=== PATIENT | male | born 1945 | race Caucasian/White ===

== ENCOUNTER → 2018-05-17 | Outpatient (CLI) | payer OTHER ==
[~2018-05-17] MED LIST: ACET-2521 PO; ASPI-1005 PO; CARB30DR OU; CHOL200074 PO; CLOP75TA32 PO; DOCU100C33 PO; LISI30TA4 PO; LORA10TA7 PO; MEGA RED PO; MELO-108 PO; METO25TA6 PO; MOME17N NS; MULT-1289 PO; OXYB5TAB10 PO; RANI150C4 PO; SIMV80TA7 PO
== END | disposition home or self-care (01) ==
LOC: RAH 12:46
PROVIDERS: ATTEND Internal Medicine Cardiovascular Disease
DX: R09.89 Other specified symptoms and signs involving the circulatory and respiratory systems (principal)
CPT/HCPCS: 93880

== ENCOUNTER → 2018-07-21 | Outpatient (CLI) | payer OTHER ==
[~2018-07-21] MED LIST changes: +GADODIAMIDE 10 MMOL/20 ML ML IV ONE
== END | disposition home or self-care (01) ==
LOC: RAH 13:44
PROVIDERS: ATTEND Family Medicine
DX: C07 Malignant neoplasm of parotid gland (principal); G31.9 Degenerative disease of nervous system, unspecified; M47.892 Other spondylosis, cervical region
CPT/HCPCS: 70543; A9579

== ENCOUNTER → 2018-11-28 | Outpatient (CLI) | payer OTHER ==
[~2018-11-28] MED LIST changes: -GADODIAMIDE 10 MMOL/20 ML ML IV ONE; +IOHEXOL 350 MG/ML 100ML INFUS..BTL IV ONE; -SIMV80TA7 PO; +SIMV80TA91 PO
== END | disposition home or self-care (01) ==
LOC: RAH 08:34
PROVIDERS: ATTEND Internal Medicine Cardiovascular Disease
DX: I71.4 Abdominal aortic aneurysm, without rupture (principal); I70.0 Atherosclerosis of aorta; I70.203 Unspecified atherosclerosis of native arteries of extremities, bilateral legs
CPT/HCPCS: 75635; Q9967 ×2

== ENCOUNTER 2019-01-11 07:24 | Day surgery (SDC) | payer OTHER ==
[2019-01-09 09:56] VITALS: BP 140/63
[2019-01-09 10:07] LABS: BASOPHILS % (AUTO) 1.2 % (0.0-5.0); EOSINOPHILS % (AUTO) 1.3 % (0.0-8.0); LYMPHOCYTES % (AUTO) 24.6 % (21.0-51.0); MEAN CORPUSCULAR HEMOGLOBIN 29.3 pg (27.0-33.0); MEAN CORPUSCULAR HGB CONC 33.5 g/dL (32.0-36.0); MEAN CORPUSCULAR VOLUME 87.2 fL (79-99); MONOCYTES % (AUTO) 7.8 % (3.0-13.0); NEUTROPHILS % (AUTO) 65.1 % (40.0-77.0); PLATELET COUNT (AUTO) 172 K/uL (130-400); RED BLOOD CELL COUNT(AUTO) 5.16 MIL/uL (4.50-6.20); RED CELL DISTRIBUTION WIDTH 14.1 % (11.0-15.5); WHITE BLOOD COUNT (AUTO) 9.7 K/uL (4.8-10.8)
[2019-01-09 10:09] LABS: CREATININE 1.3 mg/dL (0.5-1.5); POTASSIUM 4.7 mmol/L (3.5-5.1)
[2019-01-09 10:11] LABS: INR 0.97 (0.85-1.15); PARTIAL THROMBOPLASTIN TIME 29.1 SEC (26.3-35.5); PROTHROMBIN TIME 10.2 SEC (9.6-11.6)
[2019-01-09 10:27] LABS: APPEARANCE,URINE Clear (CLEAR); BILIRUBIN,URINE Negative (NEGATIVE); COLOR,URINE Yellow (YELLOW); GLUCOSE, URINE (UA) Negative (NEGATIVE); KETONES,URINE Negative (NEGATIVE); LEUKOCYTE ESTERASE ,URINE Negative (NEGATIVE); NITRATE,URINE Negative (NEGATIVE); OCCULT BLOOD,URINE Negative (NEGATIVE); PROTEIN,URINE Negative (NEGATIVE)
--- NOTE | 2019-01-10 10:58 | NUR ---
REPORTED ABNORMAL LABS AND CHEST XRAY TO [facility] [place] OF DR. KELLER. OK TO PROCEED NO NEW ORDERS.
[~2019-01-11] VITALS: Ht 182.9 cm; Wt 114.6 kg
[2019-01-11] VITALS (10 sets, daily range): BP systolic 106–152; BP diastolic 57–72
[~2019-01-11 07:24] MED LIST changes: -ASPI-1005 PO; +ASPI-555 PO; +CILO50TA PO; -IOHEXOL 350 MG/ML 100ML INFUS..BTL IV ONE; +KETOROLAC OU; -LORA10TA7 PO; -MEGA RED PO; -MELO-108 PO; +METO-391 PO; -METO25TA6 PO; -MOME17N NS; -MULT-1289 PO; +OMEG-112 PO
[2019-01-11] MEDS ORDERED: SODIUM CHLORIDE 0.9% 1000ML 1,000 ML IV ONE (07:38)
[2019-01-11] MEDS ORDERED: MONT10TA24 PO (08:57)
[2019-01-11] MEDS ORDERED: LORA10TA7 PO (08:57)
[2019-01-11] MEDS ORDERED: MULT-1258 PO (08:57)
[2019-01-11] MEDS ORDERED: METO50TA18 PO (08:57)
[2019-01-11] MEDS ORDERED: CARB15DR OP (08:57)
--- NOTE | 2019-01-11 09:10 | NUR ---
ORDERS REPORTED TO DR. KELLER THAT PT HAS A COUGH, ON AND OFF, NON PRODUCTIVE. ALSO REPORTED CHEST XRAY RESULT. DR. KELLER CAME TO SEE AND TALK TO PT IN ROOM. CHART REVIEWED BY DR. KELLER. ORDERS TO GIVE NS AT 100ML/HR.
[2019-01-11] MEDS ORDERED: SODIUM BICARB 50MEQ 50ML VIAL ONE (11:14)
[2019-01-11] MEDS ORDERED: HEPARIN SODIUM 1000UNIT/ML 10ML VIAL ONE (11:14)
[2019-01-11] MEDS ORDERED: NITROGLYCERIN 5 MG/ML 10 ML VIAL IV ONE (11:14)
[2019-01-11] MEDS ORDERED: LIDOCAINE HCL 2% 20ML ONE (11:15)
[2019-01-11] MEDS ORDERED: IODIXANOL 320 MG/ML 100 ML VIAL ONE (11:15)
[2019-01-11] MEDS ORDERED: MIDAZOLAM HCL 1 MG/ML 2ML VIAL ONE ×2 (11:59→13:12)
[2019-01-11] MEDS ORDERED: MEPERIDINE-PF 25 MG/ML SYG ONE ×2 (11:59→13:11)
[2019-01-11] MEDS ORDERED: SODIUM CHLORIDE 0.9% 1000ML 1,000 ML IV SCH (13:50)
[2019-01-11] MEDS ORDERED: ACETAMINOPHEN-CODEINE 300/30MG TAB PO PRN ×2 (14:00)
--- NOTE | 2019-01-11 15:49 | NUR ---
got report from paulina mortensen rn, pt stable
--- NOTE | 2019-01-11 15:53 | NUR ---
REPORT REPORT GIVEN TO CALVIN RAGSDALE RN. PT SUPINE ON BED, STATES HE IS SLEEPY. NO OTHER COMPLAINTS MADE. TOLERATED ORAL FLUIDS WELL. CATH SITE TO RIGHT GROIN REMAINS SOFT, NO OOZING NO HEMATOMA NOTED.
== END 2019-01-11 18:17 | disposition home or self-care (01) ==
LOC: DAHIP 07:24 → DAH 07:24
PROVIDERS: ATTEND Internal Medicine Cardiovascular Disease
DX: I70.213 Atherosclerosis of native arteries of extremities with intermittent claudication, bilateral legs (principal); I10 Essential (primary) hypertension; E78.5 Hyperlipidemia, unspecified; I25.10 Atherosclerotic heart disease of native coronary artery without angina pectoris; E66.9 Obesity, unspecified; Z68.34 Body mass index [BMI] 34.0-34.9, adult; F15.90 Other stimulant use, unspecified, uncomplicated; Z79.01 Long term (current) use of anticoagulants; F17.210 Nicotine dependence, cigarettes, uncomplicated; Z79.899 Other long term (current) drug therapy; Z98.890 Other specified postprocedural states
CPT/HCPCS: 36415; 37221; 37226; 71045; 75625; 75716; 80048; 81003; 85025; 85610; 85730; 93005; A4606; C1725 ×2; C1760; C1769 ×2; C1874; C1876; C1887; C1893; C1894; J1644 ×2; J2175 ×2; J2250 ×2; J3490 ×3; J7030; Q9967; 99156; 99157; G0378

== ENCOUNTER 2019-04-25 09:55 | Day surgery (SDC) | payer OTHER ==
[2019-04-21 11:02] VITALS: BP 157/77
[2019-04-21 11:17] LABS: APPEARANCE,URINE Clear (CLEAR); BILIRUBIN,URINE Negative (NEGATIVE); COLOR,URINE Yellow (YELLOW); GLUCOSE, URINE (UA) Negative (NEGATIVE); KETONES,URINE Negative (NEGATIVE); LEUKOCYTE ESTERASE ,URINE Negative (NEGATIVE); NITRATE,URINE Negative (NEGATIVE); OCCULT BLOOD,URINE Negative (NEGATIVE); PROTEIN,URINE Negative (NEGATIVE)
[2019-04-21 11:57] LABS: INR 0.96 (0.85-1.15); PARTIAL THROMBOPLASTIN TIME 27.9 SEC (26.3-35.5); PROTHROMBIN TIME 10.1 SEC (9.6-11.6)
[2019-04-25] VITALS (20 sets, daily range): BP systolic 117–155; BP diastolic 52–70
[~2019-04-25] VITALS: Ht 182.9 cm; Wt 115.8 kg
[~2019-04-25 09:55] MED LIST changes: +ACETAMINOPHEN 325 MG TAB PO PRN; -CARB30DR OU; -CHOL200074 PO; -KETOROLAC OU; -LISI30TA4 PO; +LORA10TA7 PO; +LOSA50TA64 PO; -METO-391 PO; +METO50TA18 PO; +MONT10TA24 PO; +MULT-1289 PO; -OXYB5TAB10 PO; +OXYB5TAB15 PO; +SODIUM CHLORIDE 0.9% 500ML 500 ML IV SCH
[2019-04-25] MEDS ORDERED: HEPARIN SODIUM 1000UNIT/ML 10ML VIAL ONE (10:39)
[2019-04-25] MEDS ORDERED: SODIUM BICARB 50MEQ 50ML VIAL ONE (10:39)
[2019-04-25] MEDS ORDERED: LIDOCAINE HCL 2% 20ML ONE (10:39)
[2019-04-25] MEDS ORDERED: IODIXANOL 320 MG/ML 100 ML VIAL ONE (10:39)
[2019-04-25] MEDS ORDERED: SODIUM CHLORIDE 0.9% 1000ML 1,000 ML IV ONE (10:58)
[2019-04-25] MEDS ORDERED: MEPERIDINE-PF 25 MG/ML SYG ONE ×2 (11:08→12:09)
[2019-04-25] MEDS ORDERED: NITROGLYCERIN 5 MG/ML 10 ML VIAL IV ONE (11:08)
[2019-04-25] MEDS ORDERED: MIDAZOLAM HCL 1 MG/ML 2ML VIAL ONE ×2 (11:08→12:09)
[2019-04-25] MEDS ORDERED: SODIUM CHLORIDE 0.9% 1000ML 1,000 ML IV SCH (12:40)
--- NOTE | 2019-04-25 13:30 | NUR ---
Bleeding to dressing to left femoral cath site continued to increase in size, however site remains soft. Pressure applied x 20 mins.
--- NOTE | 2019-04-25 13:50 | NUR ---
Old dressing removed, D-Stat applied and an additional 15 mins. of pressure applied. Addendum: 04/25/19 at 1610 by CAMI DRAPER RN RN biological lab technician called, Dr. Ochoa was unavailable. LARY Pate stated he would inform Dr. Ochoa that pt's left femoral cath site was ozzing and that a D-stat was applied.
--- NOTE | 2019-04-25 14:25 | NUR ---
Blood spot to Left femoral D-stat continues to increase. Dressing removed to evaluate bleeding. A slow ooze of blood persists to left femoral cath site. New D-stat applied and pressure further applied for 30 mins. 20 mins in to applying pressure, outside laborer also called to notify Dr. Ochoa of pt's continued oozing to site. Spoke with Shabbir, manometer technician who stated they would check on pt.
--- NOTE | 2019-04-25 15:00 | NUR ---
Shabbir clinical technician into check on pt. Shabbir took over pressure and applied an additional 30 mins of firm pressure.
--- NOTE | 2019-04-25 15:25 | NUR ---
LIZETT Chowdary in to see pt. LIZETT Chowdary aware of bleeding to left cath site and efforts to stop it. LIZETT Chowdary also informed of macular red rash that had been noted to pt's right side of neck upon returning from tin can laborer. Orders given to keep pt an additional 3 hours after application of pressure dressing.
--- NOTE | 2019-04-25 15:30 | NUR ---
Full hour of pressure completed to left femoral cath site. Site shows no further signs of bleeding. Pressure dressing applied to left femoral cath site by Shabbir injection molding process technician.
--- NOTE | 2019-04-25 18:30 | NUR ---
Pressure dressing to left femoral cath site removed, dressing clean, dry and intact s any bleeding noted, site soft and non-tender, pedal pulse present.
--- NOTE | 2019-04-25 19:00 | NUR ---
Pt discharged home, tolerating fluids/solids wells, ambulating well, voiding well. Pt denies any severe pain, nausea or dizziness. Dressing to left femoral cath site remains clean, dry, and intact s any evidence of bleeding. Pt and spouse instructed in routine and emergency care of groin site. Pt and spouse report understanding. Pt and spouse deny any further questions at this time.
== END 2019-04-25 19:00 | disposition home or self-care (01) ==
LOC: DAH 09:55
PROVIDERS: ATTEND Internal Medicine Cardiovascular Disease
DX: I70.211 Atherosclerosis of native arteries of extremities with intermittent claudication, right leg (principal); I10 Essential (primary) hypertension; J43.9 Emphysema, unspecified; F17.210 Nicotine dependence, cigarettes, uncomplicated; Z79.899 Other long term (current) drug therapy; Z82.49 Family history of ischemic heart disease and other diseases of the circulatory system; Z79.01 Long term (current) use of anticoagulants; Z98.890 Other specified postprocedural states
CPT/HCPCS: 36415; 37226; 75625; 75716; 81003; 85610; 85730; A4215 ×2; A4216; A4221; A4222; A4223 ×2; A4606; C1760; C1769 ×2; C1874; C1887; C1893; C1894; C2623; J1644 ×2; J2175 ×2; J2250 ×2; J3490 ×3; J7030; Q9967; 99156; 99157

== ENCOUNTER → 2020-01-22 | Outpatient (CLI) | payer OTHER ==
[~2020-01-22] MED LIST changes: +ACET325C6 PO; -ACETAMINOPHEN 325 MG TAB PO PRN; -ASPI-555 PO; +ASPI-556 PO; +CARB15DR OP; +FAMO20TA8 PO; +LOSA100T58 PO; -MONT10TA24 PO; +MONT10TA26 PO; +REGADENOSON 0.4 MG/5 ML PF SYG IVP SCH; -SODIUM CHLORIDE 0.9% 500ML 500 ML IV SCH
== END | disposition home or self-care (01) ==
LOC: SHCH 08:38
PROVIDERS: ATTEND Internal Medicine Cardiovascular Disease
DX: I10 Essential (primary) hypertension (principal)
CPT/HCPCS: 78452; 93017; 96374; A9500 ×2; J2785

== ENCOUNTER 2020-04-12 09:00 | Observation (INO) | payer OTHER ==
[2020-04-10 10:09] LABS: BASOPHILS % (AUTO) 0.5 % (0.0-5.0); HEMATOCRIT 45.7 % (42-54); MEAN CORPUSCULAR HEMOGLOBIN 27.9 pg (27.0-33.0); MEAN CORPUSCULAR HGB CONC 31.9 g/dL (32.0-36.0); MEAN CORPUSCULAR VOLUME 87.2 fL (79-99); MONOCYTES % (AUTO) 6.6 % (3.0-13.0); NEUTROPHILS % (AUTO) 73.6 % (40.0-77.0); PLATELET COUNT (AUTO) 190 K/uL (130-400); RED BLOOD CELL COUNT(AUTO) 5.24 MIL/uL (4.50-6.20); RED CELL DISTRIBUTION WIDTH 13.2 % (11.0-15.5); WHITE BLOOD COUNT (AUTO) 8.8 K/uL (4.8-10.8)
[2020-04-10 10:11] LABS: APPEARANCE,URINE Clear (CLEAR); BILIRUBIN,URINE Negative (NEGATIVE); COLOR,URINE Yellow (YELLOW); GLUCOSE, URINE (UA) Negative (NEGATIVE); KETONES,URINE Negative (NEGATIVE); LEUKOCYTE ESTERASE ,URINE Negative (NEGATIVE); NITRATE,URINE Negative (NEGATIVE); OCCULT BLOOD,URINE Negative (NEGATIVE); PROTEIN,URINE Negative (NEGATIVE)
[2020-04-10 10:16] LABS: POTASSIUM 4.1 mmol/L (3.5-5.1)
[2020-04-10 10:19] LABS: INR 0.91 (0.85-1.15); PARTIAL THROMBOPLASTIN TIME 27.8 SEC (26.3-35.5); PROTHROMBIN TIME 9.9 SEC (9.6-11.6)
[2020-04-10 14:04] VITALS: BP 150/74
--- NOTE | 2020-04-11 14:13 | NUR ---
xray abnormal chest xray reported to topher [facility], no furhter orders given
[~2020-04-12] VITALS: Ht 182.9 cm; Wt 114.0 kg
[~2020-04-12 09:00] MED LIST changes: -ACET-2521 PO; -ACET325C6 PO; -CARB15DR OP; -LOSA50TA64 PO; -MULT-1289 PO; -RANI150C4 PO; -REGADENOSON 0.4 MG/5 ML PF SYG IVP SCH
[2020-04-12] MEDS ORDERED: SODIUM CHLORIDE 0.9% 1000ML 1,000 ML IV ONE (09:36)
[2020-04-12 10:00] VITALS: BP 137/65
--- NOTE | 2020-04-12 10:30 | NUR ---
Dr Ochoa evaluating patient. Productive cough, clear phelm SAO2 94% stopped inhalers 3 months ago chest x-ray done yesterday reviewedby by Dr Ochoa Ordered O2 & resp Treatment
[2020-04-12] MEDS ORDERED: ACET325C6 PO (10:46)
[2020-04-12] MEDS ORDERED: CARB15DR OP (10:46)
[2020-04-12] MEDS ORDERED: ALBUTEROL SULFATE 0.083% 2.5 MG/3 ML INH IH ONE (10:55)
[2020-04-12] MEDS ORDERED: HEPARIN SODIUM 1000UNIT/ML 10ML VIAL ONE (13:16)
[2020-04-12] MEDS ORDERED: IOHEXOL 350 MG/ML 100ML INFUS..BTL IV ONE (13:16)
[2020-04-12] MEDS ORDERED: MEPERIDINE-PF 25 MG/ML SYG ONE (13:16)
[2020-04-12] MEDS ORDERED: IOHEXOL-350 50ML VIAL IV ONE ×2 (13:16→14:20)
[2020-04-12] MEDS ORDERED: NITROGLYCERIN 2 MG/VIAL VIAL IV ONE (13:16)
[2020-04-12] MEDS ORDERED: MIDAZOLAM HCL 1 MG/ML 2ML VIAL ONE (13:17)
[2020-04-12] MEDS ORDERED: LIDOCAINE HCL 2% 20ML ONE (13:17)
[2020-04-12] MEDS ORDERED: SODIUM BICARB 50MEQ 50ML VIAL ONE (13:48)
[2020-04-12] MEDS: SODIUM CHLORIDE 0.9% 1000ML 1,000 ML IV SCH (15:04)
[2020-04-12] MEDS ORDERED: ACETAMINOPHEN-CODEINE 300/30MG TAB PO PRN ×2 (15:15)
[2020-04-12 15:40] VITALS: BP 154/71
[2020-04-12 15:55] VITALS: BP 130/71
[2020-04-12 16:10] VITALS: BP 130/60
[2020-04-12 16:25] VITALS: BP 135/61
--- NOTE | 2020-04-12 16:35 | NUR ---
RECEIVED TRANSFER TO ROOM 429 VIA BED IN REVERSE [place] POSITION. TRANSFERRED TO ROOM BED WITH USE OF SLIDE BOARD AND ASSISTANCE FROM TWO MALE RN'S. RIGHT GROIN WITH MYNX DRSG WITH APPROXIMATELY QUARTER SIZE BLOODY DRAINAGE NOTED. RIGHT GROIN WITH SLIGHT FIRMNESS AND TENDERNESS NOTED; MANUAL PRESSURE APPLIED.
--- NOTE | 2020-04-12 16:55 | NUR ---
20 MINUTES MANUAL PRESSURE APPLIED. FIRMNESS SUBSIDED WHEN PRESSURE RELEASED. PT. DENIES ANY FURTHER C/O TENDERNESS. LIGHT DRSG CHANGED; NO FURTHER OOZING NOTED TO PUNCTURE SITE WHEN NEW DRSG APPLIED. INSTRUCTED PT. ON CONTINUED STRICT BR PER MD ORDERS, VERBALIZED UNDERSTANDING. PP'S (+) BILATERALLY; FEET WARM, DENIES ANY C/O NUMBNESS OR TINGLING. BED IN REVERSE [place]ENDELEN[place]G POSITION. CALL LIGHT WITHIN REACH, VERBALIZED ABILITY TO USE. O2 AT 2L/NC CONTINUES IN PLACE.
[2020-04-12] MEDS: ARTIFICAL TEARS SOL 15 ML OP SCH ×2 (17:00→20:14)
--- NOTE | 2020-04-12 17:30 | NUR ---
CONTINUES ON BEDREST. RIGHT GROIN SOFT, NO ECCHYMOSIS OR HEMATOMA NOTED. DRSG D/I. CALL LIGHT WITHIN REACH.
--- NOTE | 2020-04-12 18:00 | NUR ---
REPOSITIONED FOR COMFORT TO RIGHT SIDE. RIGHT GROIN CONTINUES SOFT, NO HEMATOMA, DRSG D/I. FEET WARM, DENIES ANY C/O NUMBNESS OR TINGLING. CALL LIGHT WITHIN REACH.
--- NOTE | 2020-04-12 19:30 | NUR ---
NURSE'S ROUNDS PT IS SITTING DOWN IN CHAIR EATING DINNER. PT ALREADY WALKED AROUND THE FLOOR ASSISTED BY PCP USING A CANE. TOLERATED ACTIVITY WELL. Addendum: 04/12/20 at 2212 by PEARL SHARMA RN RN Amended: Links added.
[2020-04-12 20:00] VITALS: BP 149/63
[2020-04-12] MEDS: OXYBUTYNIN CHLORIDE 5 MG TABLET PO SCH (20:04)
[2020-04-12] MEDS: METOPROLOL TARTRATE 50 MG TAB PO SCH (20:04)
[2020-04-12] MEDS: DOCUSATE SODIUM 100 MG CAP PO SCH (20:05)
[2020-04-12] MEDS: CILOSTAZOL 100 MG TAB PO SCH (20:05)
--- NOTE | 2020-04-12 20:05 | NUR ---
MEDS SHIFT ASSESSMENT DONE, PLEASE REFER TO CHART. DUE MEDS ADMINISTERED, TOLERATED WELL. KEPT RESTED IN CHAIR. WILL CONTINUE TO MONITOR. CALL LIGHT WITHIN REACH. Addendum: 04/12/20 at 2225 by PEARL SHARMA RN RN Amended: Links added.
[2020-04-12] MEDS: ACETAMINOPHEN 325 MG TAB PO SCH (20:06)
[2020-04-12] MEDS ORDERED: MONTELUKAST SODIUM 10 MG TAB PO SCH (21:00)
[2020-04-12] MEDS ORDERED: LOSARTAN 50 MG TABLET PO SCH (21:00)
[2020-04-12] MEDS ORDERED: SIMVASTATIN 20 MG TABLET PO SCH (21:00)
[2020-04-12] MEDS ORDERED: FAMOTIDINE 20MG TAB 20 MG TAB PO SCH (21:00)
--- NOTE | 2020-04-12 21:00 | NUR ---
WALK PT REQUESTED TO HAVE ANOTHER WALK BEFORE SLEEPING. PCP ASSISTED PT. WALKED VERY GOOD WITH MINIMAL HELP USING A CANE.
--- NOTE | 2020-04-12 23:00 | NUR ---
BATHE PCP GAVE PT A ADEBAYO, TOLERATED ACTIVITY WELL. PT WALKED THE HALLWAY AGAIN WITH MINIMAL ASSIST. TOLERATED ACTIVITY WELL. PLACED BACK IN BED THEN RE-STARTED IVF AT 75CC/HR. KEPT COMFORTALBE IN BED. ENCOURAGED TO REST AND SLEEP. WILL CONTINUE TO MONITOR.
[2020-04-13] VITALS: BP 114/50
[2020-04-13] MEDS: SODIUM CHLORIDE 0.9% 1000ML 1,000 ML IV SCH ×2 (00:19→05:21)
--- NOTE | 2020-04-13 01:44 | NUR ---
ROUNDS PT RESTING WELL, FAIRLY ASLEEP. NO DISTRESS NOTED. KEPT UNDISTURBED FOR NOW. WILL MONITOR PT. CALL LIGHT WITHIN EACH.
[2020-04-13 04:00] VITALS: BP 111/56
[2020-04-13 05:08] LABS: MEAN CORPUSCULAR HEMOGLOBIN 28.2 pg (27.0-33.0); MEAN CORPUSCULAR HGB CONC 32.4 g/dL (32.0-36.0); MEAN CORPUSCULAR VOLUME 86.9 fL (79-99); RED BLOOD CELL COUNT(AUTO) 4.72 MIL/uL (4.50-6.20); RED CELL DISTRIBUTION WIDTH 13.1 % (11.0-15.5); WHITE BLOOD COUNT (AUTO) 8.7 K/uL (4.8-10.8)
--- NOTE | 2020-04-13 05:21 | NUR ---
HUNG PT ALREADY AWAKE, NO CONCERNS VERBALIZED. NO DISTRESS NOTED. NEW IVF BAG HUNG. NS STILL TO RUN UNTIL 8AM TODAY. FOR MORE CARE.
[2020-04-13 05:30] LABS: CREATININE 0.8 mg/dL (0.5-1.5); POTASSIUM 4.2 mmol/L (3.5-5.1)
[2020-04-13 08:00] VITALS: BP 132/61
[2020-04-13] MEDS: OXYBUTYNIN CHLORIDE 5 MG TABLET PO SCH (08:21)
[2020-04-13] MEDS: ACETAMINOPHEN 325 MG TAB PO SCH (08:22)
[2020-04-13] MEDS: CILOSTAZOL 100 MG TAB PO SCH (08:22)
[2020-04-13] MEDS: DOCUSATE SODIUM 100 MG CAP PO SCH (08:24)
[2020-04-13] MEDS: METOPROLOL TARTRATE 50 MG TAB PO SCH (08:24)
[2020-04-13] MEDS: ARTIFICAL TEARS SOL 15 ML OP SCH (08:24)
[2020-04-13] MEDS ORDERED: LORATADINE 10 MG TABLET PO SCH (09:00)
[2020-04-13] MEDS ORDERED: FISH OIL 1000 MG/CAP PO SCH (09:00)
[2020-04-13] MEDS ORDERED: ASPIRIN 81 MG EC TAB PO SCH (09:00)
[2020-04-13] MEDS ORDERED: CLOPIDOGREL BISULFATE 75 MG TAB PO SCH (09:00)
[2020-04-13 11:00] VITALS: BP 120/61
--- NOTE | 2020-04-13 13:04 | NUR ---
PT DISCHARGE IN GOOD CONDITION, IV REMOVED W/O DIFFICULTY OR COMPLICATION, RT GROIN PUNCTURE SITE UNREMARKABLE WITH SMALL BRUISING NOTED. PT STATES UNDERSTANDING OF DISCHARGE INSTRUCTIONS AND FOLLOW UP APPOINTMENTS, INCLUDING NO NEW MEDICATION ORDERS. DISMISSED BY W/C IN GOOD CONDITION ACCOMPANIED BY STAFF AND FAMILY
== END 2020-04-13 13:10 | disposition home or self-care (01) ==
LOC: DAH 09:00 → 4AH 09:01 → DAHIP 09:01 → UNDOADMOB 09:01
PROVIDERS: ADMIT Internal Medicine; ATTEND Internal Medicine
DX: I25.119 Atherosclerotic heart disease of native coronary artery with unspecified angina pectoris (principal); I73.9 Peripheral vascular disease, unspecified; M54.12 Radiculopathy, cervical region; I10 Essential (primary) hypertension; E78.5 Hyperlipidemia, unspecified; E66.9 Obesity, unspecified; F17.210 Nicotine dependence, cigarettes, uncomplicated
CPT/HCPCS: 36415 ×2; 71045; 80048 ×2; 80061; 81003; 85025; 85027; 85610; 85730; 93005; 93458; 94640; 96360; 96361 ×2; A4215; A4216; A4221; A4222; A4223 ×3; A4606; A4663; C1725; C1760; C1769 ×2; C1874; C1887; C1894 ×3; C9600; G0378 ×16; J1644 ×2; J2175; J2250; J3490 ×3; J7030 ×2; Q9965; Q9967 ×3; 99156; 99157

== ENCOUNTER → 2021-10-15 | Outpatient (CLI) | payer OTHER ==
[~2021-10-15] MED LIST changes: +ALBUTEROL SULFATE NS; +CARB15DR OP; +CETI10TA57 PO; +COFF1CAP3 PO; +FLUT1BLS11 IH; +GUAI100G PO; +HYDR-4060 PO; -LORA10TA7 PO; -MONT10TA26 PO; +MULT-1367 PO; -OXYB5TAB15 PO; +TIOTROPIUM BROMIDE NASAL
== END | disposition home or self-care (01) ==
LOC: SHCH 10:35
PROVIDERS: ATTEND Internal Medicine Cardiovascular Disease
DX: I36.1 Nonrheumatic tricuspid (valve) insufficiency (principal); I51.7 Cardiomegaly; I73.9 Peripheral vascular disease, unspecified; E78.5 Hyperlipidemia, unspecified; J44.9 Chronic obstructive pulmonary disease, unspecified; Z99.81 Dependence on supplemental oxygen
CPT/HCPCS: 93306

== ENCOUNTER → 2022-02-23 | Outpatient (CLI) | payer OTHER ==
[~2022-02-23] MED LIST changes: +IOHEXOL 350 MG/ML 100ML INFUS..BTL IV ONE; +IOHEXOL-350 50ML VIAL IV ONE
== END | disposition home or self-care (01) ==
LOC: RAH 08:39
PROVIDERS: ATTEND Internal Medicine Cardiovascular Disease
DX: I70.0 Atherosclerosis of aorta (principal); I73.9 Peripheral vascular disease, unspecified
CPT/HCPCS: 75635; Q9967 ×2

== ENCOUNTER 2025-05-01 19:55 | Emergency (ER) | payer OTHER ==
[~2025-05-01] VITALS: Ht 190.5 cm; Wt 86.2 kg
[~2025-05-01 19:55] MED LIST changes: -ALBUTEROL SULFATE NS; +CILO100T3 PO; -CILO50TA PO; -COFF1CAP3 PO; +FLUT1BLS IH; -FLUT1BLS11 IH; -HYDR-4060 PO; -IOHEXOL 350 MG/ML 100ML INFUS..BTL IV ONE; -IOHEXOL-350 50ML VIAL IV ONE; +LEVO750T90 PO; -LOSA100T58 PO; +LOSA100T59 PO; +OXYB5TAB20 PO; +PRED20B PO
[2025-05-01 20:28] LABS: IMMATURE GRANULOCYTE ABSOLUTE 0.02 K/uL (0-1); NUCLEATED RED BLOOD CELLS 0.0 % (0.0-0.19); PLATELET COUNT (AUTO) 226 K/uL (130-400); RED BLOOD CELL COUNT(AUTO) 4.04 MIL/uL (4.50-6.20); RED CELL DISTRIBUTION WIDTH 17.5 % (11.0-15.5); WHITE BLOOD COUNT (AUTO) 7.3 K/uL (4.8-10.8)
[2025-05-01 20:30] LABS: APPEARANCE,URINE CLEAR (CLEAR); GLUCOSE, URINE (UA) NEGATIVE (NEGATIVE); LEUKOCYTE ESTERASE ,URINE NEGATIVE Leu/uL (NEGATIVE); NITRATE,URINE NEGATIVE (NEGATIVE); OCCULT BLOOD,URINE NEGATIVE (NEGATIVE)
[2025-05-01 20:31] LABS: CREATININE 0.6 mg/dL (0.5-1.3); GLOMERULAR FILTR. RATE CALC 98.0 mL/min (>90); GLUCOSE,RANDOM 110.0 mg/dL (70-105); SODIUM SERUM 139.0 mmol/L (136-145); UREA NITROGEN, BLOOD 15.0 mg/dL (7-18)
[2025-05-01 20:36] LABS: CREATINE KINASE, TOTAL 28.0 U/L (21-232)
[2025-05-01] MEDS ORDERED: MOME13HF12 IH (20:42)
[2025-05-01] MEDS ORDERED: TIOT18CA3 IH (20:46)
[2025-05-01 21:09] LABS: ADD UA MICROSCOPIC NO
--- NOTE | 2025-05-01 21:09 | EKG ---
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
--- NOTE | 2025-05-01 21:48 | ERN ---
General Chief Complaint: Chest Pain Stated Complaint: CHEST PAIN Time Seen by MD: 20:16 Time Seen by Midlevel: 20:16 Source: patient, family () History of Present Illness Initial Comments 80-year-old male presents to the ER with midepigastric abdominal pain and right- sided chest pain that started at proximally lunch hour today. The pain progressively worsened throughout the day but upon arrival to the emergency department his pain resolved. Allergies: Coded Allergies: No Known Drug Allergies (Unverified Allergy, Unknown, 09/15/16) Home Meds Active Scripts Fluticasone/Vilanterol (Breo Ellipta 200-25 Mcg INH) 1 Each Blst.w.dev, 1 EACH IH PM for 30 Days, #1 INHALER 2 Refills Prov:CE PEREZ MD 02/21/23 Reported Medications Tiotropium [place] (Spiriva) 18 Mcg Cap.w.dev, 18 MCG IH DAILY 05/01/25 Mometasone/Formoterol (Dulera 100 Mcg/5 Mcg Inhaler) 100 Mcg-5 Mcg/Actuation Hfa.aer.ad, 2 PUFF IH BID for 30 Days, #13 GM 0 Refills 05/01/25 Losartan Potassium (Losartan Potassium) 100 Mg Tablet, 100 MG PO HS, TAB 05/01/25 Oxybutynin Chloride (Oxybutynin Chloride) 5 Mg Tablet, 5 MG PO BID, TAB 02/18/23 Cilostazol (Cilostazol) 100 Mg Tablet, 100 MG PO BID, TAB 02/18/23 Cetirizine HCl (Cetirizine HCl) 10 Mg Tablet, 10 MG PO DAILY, TAB 09/17/21 Carboxymethylcellulose Sodium (Refresh Tears) 15 Ml Drops, 15 ML OP QID, DROP 04/12/20 Famotidine (Famotidine) 20 Mg Tablet, 20 MG PO HS, TAB 04/11/20 Metoprolol Tartrate (Metoprolol Tartrate) 50 Mg Tablet, 0.5 TAB PO BID, TAB 01/11/19 [place]-3/Dha/Epa/Fish Oil ([place] 3 500 Softgel) 1 Each Capsule, 1 EACH PO DAILY, CAP 01/09/19 Aspirin (Aspir 81) 81 Mg Tablet.dr, 81 MG PO DAILY, TAB 01/09/19 Docusate Sodium (Docusate Sodium) 100 Mg Capsule, 100 MG PO BID, CAP 4/3/17 Clopidogrel Bisulfate (Clopidogrel) 75 Mg Tablet, 75 MG PO DAILY, TAB 10/26/16 Simvastatin (Simvastatin) 80 Mg Tablet, 80 MG PO HS, TAB 10/26/16 Discontinued Reported Medications Multivitamin (Multivitamin) 1 Each Tablet, 1 EACH PO BID, TAB 09/16/21 Guaifenesin (Mucinex) 100 Mg Gran.pack, 100 MG PO BID, PACK 09/16/21 [Tiotropium [place]] No Conflict Check, 2.5 MCG NASAL BID 09/16/21 Losartan Potassium (Losartan Potassium) 100 Mg Tablet, 50 MG PO HS, TAB 04/11/20 Discontinued Scripts Levofloxacin (Levofloxacin) 750 Mg Tablet, 750 MG PO DAILY for 7 Days, #7 TAB Prov:CE PEREZ MD 02/21/23 Prednisone (Deltasone/Orasone [Bulk]) 20 Mg Tab, 40 MG PO DAILY, #10 TAB 0 Refills Prov:CE PEREZ MD 02/21/23 Past Medical History Past Medical History: Asthma, COPD, High Cholesterol, Hypertension Medical History Other: EMPHYSEMA Past Surgical History: Other Surgical History Other: NECK SURGERY HOWEVER DOES NOT KNOW WHAT THEY DID, BILATERAL KNEE ROS Dictation CONSTITUTIONAL: Negative except for HPI HEAD/FACE: Negative except for HPI EENT: Negative except for HPI RESPIRATORY: Negative except for HPI GASTROINTESTINAL/ABDOMINAL: Negative except for HPI GENITOURINARY: Negative except for HPI MUSCULOSKELETAL: Negative except for HPI INTEGUMENTARY: Negative except for HPI NEUROLOGICAL/PSYCH: Negative except for HPI HEMATOLOGIC/LYMPHATIC: Negative except for HPI All Systems Negative, Except as noted above. 13 point review of systems assessed and all negative except for above. Physical Exam Physical Exam Dictation Vital Signs reviewed General Appearance: Alert, oriented x 3, no acute distress, well developed, nourished. Head and Face: non-traumatic. Eyes: PERRL, pink conjunctivas, eyelid no trauma, anterior chamber with arcus senilis. Ears: Pinnas intact and no signs of trauma or erythema ear canals clear and no discharge TM no erythema Nose: No discharge, no bleeding. Oropharynx: Mouth normal, tongue pink, pharynx clear,no erythema, tonsils no exudates, no abscesses noted, mucous membrane moist Neck: Supple, non-tender, no thyromegaly, no masses, no JVD, no bruits Breast:Deferred Chest:No tenderness, no crepitus, no paradoxical movement, no retractions Lungs:Clear, well-ventilated, symmetric, no rales, no wheezing, no rhonchi, no stridor, good breath sounds bilaterally Heart: Regular rate, regular rhythm, no murmur, no gallops Vascular: no peripheral edema, Abdomen: Soft, positive bowel sounds, nondistended, no guarding, nontender, no rebound, no masses no hepatomegaly, no splenomegaly, no Riddle's sign, no hernias. Rectal: Deferred Genital: Deferred Neurological: Normal speech, motor function intact, sensory function intact Musculoskeletal: Neck nontender, full range of motion, back nontender, full range of motion, Extremities: nontender, full range of motion Skin: Color pink, dry, no turgor, no rash, no lacerations, no abrasions, no contusions. Lymphatic: Deferred Results Laboratory and Microbiology Lab and Micro Result Laboratory Tests Test 05/01/25 20:12 05/01/25 20:17 05/01/25 21:19 White Blood Count 7.3 K/uL (4.8-10.8) Red Blood Count 4.04 MIL/uL (4.50-6.20) L Hemoglobin 7.9 g/dL (14.0-18.0) L Hematocrit 28.6 % (42-54) L Mean Corpuscular Volume 70.8 fL (79-99) L Mean Corpuscular Hemoglobin 19.6 pg (27.0-33.0) L Mean Corpuscular Hemoglobin Concent 27.6 g/dL (32.0-36.0) L Red Cell Distribution Width 17.5 % (11.0-15.5) H Platelet Count 226 K/uL (130-400) Mean Platelet Volume 10.5 fL (7.5-10.5) Immature Granulocyte % (Auto) 0.3 % (0-1) Neutrophils (%) (Auto) 66.2 % (40.0-77.0) Lymphocytes (%) (Auto) 23.1 % (21.0-51.0) Monocytes (%) (Auto) 8.2 % (3.0-13.0) Eosinophils (%) (Auto) 1.8 % (0.0-8.0) Basophils (%) (Auto) 0.4 % (0.0-5.0) Neutrophils # (Auto) 4.8 K/uL (1.8-7.7) Lymphocytes # (Auto) 1.7 K/uL (1.0-4.8) Monocytes # (Auto) 0.6 K/uL (0.1-1.0) Eosinophils # (Auto) 0.13 K/uL (0.00-0.70) Basophils # (Auto) 0.03 K/uL (0.00-0.20) Absolute Immature Granulocyte (auto 0.02 K/uL (0-1) Nucleated Red Blood Cells 0.0 % (0.0-0.19) Red Blood Cell Morphology See comments Sodium Level 139 mmol/L (136-145) Potassium Level 4.2 mmol/L (3.5-5.1) Chloride Level 102 mmol/L (101-111) Carbon Dioxide Level 29 mmol/L (21-32) Blood Urea Nitrogen 15 mg/dL (7-18) Creatinine 0.6 mg/dL (0.5-1.3) Glomerular Filtration Rate Calc 98 mL/min (>90) Random Glucose 110 mg/dL (70-105) H Total Calcium 8.5 mg/dL (8.5-10.1) Total Creatine Kinase 28 U/L (21-232) Troponin I High Sensitivity 12 ng/L (4-75) 14 ng/L (4-75) Urine Color LIGHT-YELLOW (YELLOW) Urine Appearance CLEAR (CLEAR) Urine pH 5.5 (5.0-8.0) Urine Specific [place] 1.017 (1.001-1.031) Urine Protein NEGATIVE mg/dL (NEGATIVE) Urine Glucose (UA) NEGATIVE mg/dL (NEGATIVE) Urine Ketones NEGATIVE mg/dL (NEGATIVE) Urine Occult Blood NEGATIVE (NEGATIVE) Urine Nitrate NEGATIVE (NEGATIVE) Urine Bilirubin NEGATIVE mg/dL (NEGATIVE) Urine Urobilinogen 0.2 mg/dL (0.2-1.0) Urine Leukocyte Esterase NEGATIVE Micky/uL Labs Reviewed?: Yes MDM MDM: Differential diagnosis: Gastritis, acute coronary syndrome, reflux, noncardiac chest pain There are no social concerns with this patient. Prescription drug management Prescriptions will include: None Medical management and examination interpretation discussions were had by me with other qualified healthcare professionals as indicated for the patient's care. ED Course Orders Procedure Category Date Status Time Vital Signs Per CPOE 05/01/25 Transmitted Routine 20:04 Chest 1vw RAD 05/01/25 Taken 20:04 12 Lead Ekg Tracing- EKG 05/01/25 Complete Technical 20:04 Oxygen By Nc/Pulse Ox CPOE 05/01/25 Transmitted 20:04 Maintain Iv CPOE 05/01/25 Transmitted 20:04 Iv Insertion CPOE 05/01/25 Transmitted 20:04 Cardiac Monitoring CPOE 05/01/25 Transmitted 20:04 Pulse Oximetry With CPOE 05/01/25 Transmitted Vs And Prn 20:04 Cbc With Differential LAB 05/01/25 Complete 20:04 Activity: Br W/Brp CPOE 05/01/25 Transmitted With Assist 20:04 Creatine Kinase, Total LAB 05/01/25 Complete 20:04 Troponin I High LAB 05/01/25 Complete Sensitivity 20:04 Urinalysis Profile LAB 05/01/25 Complete 20:04 Basic Metabolic Panel LAB 05/01/25 Complete 20:04 Troponin I High LAB 05/01/25 Complete Sensitivity 21:16 Vital Signs Date Time Temp Pulse Resp B/P (MAP) Pulse Ox O2 Delivery O2 Flow Rate FiO2 05/01/25 20:00 88 18 144/58 98 Room Air* 0 21 HEART Score Response (Comments) Value History: Low suspicion (0) 0 EKG: Normal 0 Age: > 65yrs (+2) 2 Risk Factors: 1-2 risk factors (+1) 1 Initial Troponin: Normal limit (0) 0 HEART Score Risk: Low Risk for MACE (1-3) Total 3 DX & DISP Disposition: Discharge Departure Impression: Primary Impression: Non-cardiac chest pain Condition: Stable Additional Instructions: Blood work today is unremarkable. Your two sets of cardiac enzymes (Troponin) are negative. Your chest x-ray does not show any acute changes. Your pain does not appear to be coming from the heart. Follow up with your primary care doctor in 2-3 days for repeat evaluation Referrals: JOCE ANGULO (PCP) Time of Disposition: 21:46 I have reviewed the case, and I agree with, Diagnosis and Plan I performed the substantive portion of the visit. I have reviewed and personally made and approve the management plan that is documented in the note by myself or the JESSY. I acknowledge for responsibility for the patient's management plan. JOSEY NOLAN PAC May 01, 2025 21:48
--- NOTE | 2025-05-01 21:56 | HMCIMG ---
EXAM: CR Chest, 1 View. CLINICAL HISTORY: CHEST PAIN COMPARISON: Radiograph dated February 18, 2023 FINDINGS: There is airspace disease within the bilateral perihilar and bibasilar regions. Small bilateral effusions. No pneumothorax. Heart size is stable. Pulmonary vascular congestion. IMPRESSION: 1. Bilateral perihilar and bibasilar airspace disease with small bilateral pleural effusions and pulmonary vascular congestion, likely representing pulmonary edema. /[place]
[2025-05-01 22:04] VITALS: BP 120/51; PULSE 77; RESP 18; TEMP 98.3; O2SAT 96
== END 2025-05-01 22:09 | disposition home or self-care (01) ==
LOC: EDH 19:55
DX: R07.89 Other chest pain (principal); E78.00 Pure hypercholesterolemia, unspecified; I10 Essential (primary) hypertension; J43.8 Other emphysema; Z79.02 Long term (current) use of antithrombotics/antiplatelets; Z79.51 Long term (current) use of inhaled steroids; Z79.52 Long term (current) use of systemic steroids; Z79.82 Long term (current) use of aspirin; Z79.899 Other long term (current) drug therapy
CPT/HCPCS: 36415; 71045; 80048; 81003; 82550; 84484; 85025; 93005; 99285